=== PATIENT | female | born 1955 | race Caucasian/White ===

== ENCOUNTER 2023-03-24 13:48 | Emergency (ER) | payer MEDICARE, OTHER ==
[2023-03-24 13:53] VITALS: BP 122/66; PULSE 69
== END 2023-03-24 16:20 | disposition home or self-care (01) ==
LOC: LL.ED 13:48
DX: M54.50 Low back pain, unspecified (principal); I10 Essential (primary) hypertension; Z79.899 Other long term (current) drug therapy
CPT/HCPCS: 72100; 99283